=== PATIENT | female | born 1995 | race Caucasian/White ===

== ENCOUNTER 2016-11-07 07:26 | Emergency (ER) | payer OTHER ==
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
[~2016-11-07 07:26] MED LIST: BIRTH CONTROL PILL PO; GLUCOPHAGE500 MG PO; NO MEDICATIONS
[2016-11-12] MEDS ORDERED: PERCOCET (22:12)
== END 2016-11-07 08:21 | disposition home or self-care (01) ==
LOC: SED 07:26
DX: S13.4XXA Sprain of ligaments of cervical spine, initial encounter (principal); S20.211A Contusion of right front wall of thorax, initial encounter; J45.909 Unspecified asthma, uncomplicated; Z88.0 Allergy status to penicillin; Z88.2 Allergy status to sulfonamides; Z79.84 Long term (current) use of oral hypoglycemic drugs; E11.9 Type 2 diabetes mellitus without complications; V43.62XA Car passenger injured in collision with other type car in traffic accident, initial encounter
CPT/HCPCS: 71250; 72040; 73030; 99284

== ENCOUNTER 2016-11-12 22:23 | Emergency (ER) | payer OTHER ==
[~2016-11-12 22:23] MED LIST changes: +PERCOCET
== END 2016-11-12 23:40 | disposition home or self-care (01) ==
LOC: SED 22:23
DX: G44.309 Post-traumatic headache, unspecified, not intractable (principal); J45.909 Unspecified asthma, uncomplicated; Z88.0 Allergy status to penicillin; Z88.2 Allergy status to sulfonamides; Z79.84 Long term (current) use of oral hypoglycemic drugs
CPT/HCPCS: 96372; 99283; J1885; J2360